=== PATIENT | female | born 1935 ===

== ENCOUNTER 2022-04-17 07:30 | Inpatient (IN) | payer OTHER ==
[~2022-04-17] VITALS: Ht 142.2 cm; Wt 60.8 kg
[2022-04-17] MEDS ORDERED: SULINDAC150 MG PO (08:08)
[2022-04-17] MEDS ORDERED: ACID REDUCER20 M1 PO (08:09)
[2022-04-17] MEDS ORDERED: FOLIC PO (08:09)
[2022-04-17] MEDS ORDERED: LEVOTHY PO (08:10)
[2022-04-17] MEDS ORDERED: ACID CONTROLLER20 MG PO (08:10)
[2022-04-17] MEDS ORDERED: AMLODIPI PO (08:11)
[2022-04-17] MEDS ORDERED: SINGULAIR10 MG PO (08:11)
[2022-04-17] MEDS ORDERED: DIOVAN320 MG PO (08:11)
[2022-04-17] MEDS ORDERED: [UNRECOGNIZED DRUG - OTHER] IH (08:12)
[2022-04-17] MEDS ORDERED: ZYLOPRIM100 M1 PO (12:48)
[2022-04-23] MEDS ORDERED: PRILOSEC10 MG (13:12)
[2022-04-23] MEDS ORDERED: BETAXOLOL HCL10 MG (13:12)
[2022-04-23] MEDS ORDERED: GABAPENTIN600 MG (13:12)
[2022-04-23] MEDS ORDERED: LEVOTHYROXINE100 MCG (13:12)
[2022-04-23] MEDS ORDERED: AMLODIPINE BESYL5 MG (13:12)
[2022-04-23] MEDS ORDERED: LUMIGAN2.5 M1 (13:12)
[2022-04-23] MEDS ORDERED: STIOLTO RESPIMAT4 GM (13:12)
[2022-04-23] MEDS ORDERED: DICLOFENAC SODI75 MG (13:13)
[2022-04-23] MEDS ORDERED: AZELASTINE HCL6 ML (13:13)
[2022-04-23] MEDS ORDERED: IRON325 MG (13:13)
[2022-04-23] MEDS ORDERED: VITAMIN D3250 MCG (13:13)
[2022-04-23] MEDS ORDERED: OPTIVE EYE DROP15 ML (13:13)
[2022-04-23] MEDS ORDERED: FOLIC ACID1 MG (13:13)
[2022-04-23] MEDS ORDERED: ATROVENT HFA12.9 GM (13:13)
[2022-04-23] MEDS ORDERED: VALSARTAN-HCTZ1 EAC4 (13:13)
[2022-04-23] MEDS ORDERED: FUROSEMIDE20 MG (13:13)
[2022-04-23] MEDS ORDERED: LATANOPROST2.5 ML (13:13)
[2022-04-28] MEDS ORDERED: ULTRACET PO (08:18)
== END 2022-04-28 14:58 | disposition home or self-care (01) | DRG 330 ==
LOC: SURH 04-23 06:15 → O/R 04-23 06:15 → SURG 04-23 07:00 → EDBD 04-23 07:30 → SURH 04-23 15:32
PROVIDERS: ADMIT Surgery; ATTEND Surgery
PROC: 0DBL4ZZ Excision of Transverse Colon, Percutaneous Endoscopic Approach (ICD-10-PCS; 2022-04-23)
PROC: 07BC4ZZ Excision of Pelvis Lymphatic, Percutaneous Endoscopic Approach (ICD-10-PCS; 2022-04-23)
PROC: 07BB4ZZ Excision of Mesenteric Lymphatic, Percutaneous Endoscopic Approach (ICD-10-PCS; 2022-04-23)
PROC: 3E0F7SF Introduction of Other Gas into Respiratory Tract, Via Natural or Artificial Opening (ICD-10-PCS; 2022-04-23)
PROC: 0DTF4ZZ Resection of Right Large Intestine, Percutaneous Endoscopic Approach (ICD-10-PCS; principal; 2022-04-23 07:00)
PROC: BR29YZZ Computerized Tomography (CT Scan) of Lumbar Spine using Other Contrast (ICD-10-PCS; 2022-04-27)
DX: C18.2 Malignant neoplasm of ascending colon (principal); K57.32 Diverticulitis of large intestine without perforation or abscess without bleeding; K63.3 Ulcer of intestine; R59.0 Localized enlarged lymph nodes; K66.0 Peritoneal adhesions (postprocedural) (postinfection); M48.061 Spinal stenosis, lumbar region without neurogenic claudication; M51.36 Other intervertebral disc degeneration, lumbar region; M62.830 Muscle spasm of back; R93.5 Abnormal findings on diagnostic imaging of other abdominal regions, including retroperitoneum